=== PATIENT | female | born 1990 | race Two or more races ===

== ENCOUNTER 2020-06-19 17:38 | Emergency (ER) | payer OTHER, BC, SELFPAY ==
[2020-06-19 17:39] VITALS: BP 128/75; PULSE 101; RESP 16; TEMP 36.4; O2SAT 98; BMI 25.7
[2020-06-19] MEDS: Ondansetron 4 MG/2 ML Vial IV (18:21)
[2020-06-19] MEDS: Morphine 4 MG/ML Syringe IV (18:22)
[2020-06-19] MEDS: Ketorolac 15 MG/ML Vial IV (18:23)
--- NOTE | 2020-06-19 18:40 | RAD_ITS ---
STUDY: X-RAY - LUMBAR SPINE REASON FOR EXAM: Female, 30 years old. fall off horse, low back pain TECHNIQUE: 3 view(s) of the lumbar spine were obtained. COMPARISON: None FINDINGS: Normal lumbar lordosis. There is mild levo scoliosis. There is a normal alignment of the vertebrae. Disc space heights are well-maintained. There is minor endplate spurring at L5-S1 The soft tissue structures are unremarkable. RAD/Lumbar Spine 2 or 3 Views IMPRESSION: Mild scoliosis and degenerative changes. No acute fracture Electronically Signed: Nikolay Montoya MD at 19:23 EDT , Service support ,
--- NOTE | 2020-06-19 18:54 | ED.DCSUM_ITS ---
History of Present Illness Chief Complaint: Trauma Informant: Patient Onset: Today Mechanism/Context: Blunt Injury, Fall Quality of Pain: Dull, Aching Location: Right flank/lower back and central low back pain over the L4, 5 and sacral Current Severity: Mild Maximum Severity: Moderate Worsened by: Movement and sitting Relieved by: Nothing Associated Symptoms: Negative for: Parasthesias, Weakness, Loss of function, Inability to ambulate, Loss of consciousness, Amnesia Narrative: Patient is a 30-year-old woman who was getting on a horse that bucked. She was thrown from the horse. She did hit her head. She was wearing a helmet. Denies loss of conscious. She would not days. She denies nausea or vomiting. She states she feels foggy at this time. She denies neck pain. She denies paresthesia, anesthesia motor is present in the upper or lower extremities. She has urinated since the fall and states there was no blood or discoloration of her urine. She is on no anticoagulant. She has no medical problems. Tetanus Immunization: 5-10 years Prior similar symptoms: No Recent Illness/Hospitalization: No - Past Medical History (1) No significant past medical history Status: Acute Past Medical History - Allergies and Home Meds Allergies/Adverse Reactions: Allergies No Known Allergies Allergy (Verified 06/19/20 17:41) Primary Care Physician: Kj Cantu MD [Primary Care Provider] - Prior records reviewed: No Past Medical History: None Surgical History: noncontributory Lives: Spouse/ Significant Other Smoking Status: Never smoker Drugs: None Review of Systems Eyes: Denies: Visual changes - bilaterally, Blurred Vision - bilaterally ENT: Reports: - - Denies epistaxis. Denies: Rhinorrhea, Sore throat Cardiovascular: Denies: Chest pain, Palpitations Gastrointestinal: Denies: Abdominal pain, Nausea, Vomiting, Diarrhea, Melena, Hematochezia Genitourinary: Denies: Dysuria, Hematuria, Frequency Musculoskeletal: Reports: Back pain. Denies: Myalgias, Arthralgias, Neck pain, Swelling, Extremity Pain, -, - Skin: Reports: Abrasions. Denies: Rash, Abscess, Wounds, -, - Neurological: Denies: Headache, Weakness, Parasthesia Endocrine: Denies: Polyuria, Polydipsia Hematologic: Denies: Easy bruising, Easy bleeding Physical Exam Vital Signs/Narrative: Vital Signs Temp Pulse Resp BP Pulse Ox 06/19/20 17:39 97.6 F L 101 H 16 128/75 H 98 Inital Vital Signs reviewed: Yes General: Well nourished, Well developed Head: Normocephalic, Atraumatic, - - No clinical finding of basilar skull fracture. Negative for: Trauma, Tenderness Eyes: Perrl, EOMI, - - Subconjunctival hemorrhage. Negative for: Pale conjunctiva, Scleral icterus ENT: TM's clear, No hemotympanum or drainage, No trauma. Negative for: Nasal trauma, Nasal septal hematoma Neck: Nontender, Full ROM Cardiovascular: Regular rate, Regular rhythm, No murmurs, Normal S1, Normal S2 Respiratory: No distress, CTA bilaterally, Chest nontender Abdomen: Soft, Nontender, Nondistended, Normal bowel sounds, - - No pain palpation of the pelvis Back: CVA Tenderness - Right, Spinal Tenderness - L4-5 spinous process and sacrum, Paraspinal Tenderness. Negative for: Nontender, CVA Tenderness - Left Skin: Normal color, No rash, Trauma - Abrasions and contusions right lower back/flank and midline Neurological: Alert, Oriented x3, Cranial nerves II-XII grossly intact, Normal Strength, Normal Sensation, Normal DTR Psychological: Normal affect - Glascow Coma Scale Eye Opening: Spontaneous Motor: Obeys Commands Verbal: Oriented Coma Scale Total: 15 Diagnostic/Tx/Re-eval Chest X-Ray - ED: Read by ED Physician, - - 3 view x-ray of the LS-spine reveals no evidence of fracture, subluxation, spondylolisthesis or spinal orthosis. - Medical Decision Making She was medicated with IV meds. X-ray was obtained to rule out fracture. ED Disposition - Plan for ED Patient: Disposition: Home or Assisted Living Diagnosis: Contusion of lower back and pelvis, initial encounter, Abrasions of multiple sites Instructions: ED Contusion Back, ED Abrasion Prescriptions: Naproxen [Naprosyn] 500 mg PO BID #14 tab Transmission Status: Pending to [facility]/pharmacy #[id number] Referrals: Kj Cantu MD [Primary Care Provider] - 1 Week if not improving Additional Instructions: 1. You may feel pain in more places and you presently do 2. You may feel worse over the next 24 to 48 hours. 3. You may hurt up to 1 week. 4. Apply ice 20 to 30 minutes per application 6-8 times a day for the next 3 to 5 days.
== END 2020-06-19 19:42 | disposition home or self-care (01) ==
PROVIDERS: Emergency Provider Emergency Medicine; PCP Family Medicine
DX: S06.0X0A Concussion without loss of consciousness, initial encounter (principal); S30.0XXA Contusion of lower back and pelvis, initial encounter; S30.810A Abrasion of lower back and pelvis, initial encounter; S30.811A Abrasion of abdominal wall, initial encounter; V80.010A Animal-rider injured by fall from or being thrown from horse in noncollision accident, initial encounter; Y93.89 Activity, other specified; Y92.9 Unspecified place or not applicable; Y99.9 Unspecified external cause status
CPT/HCPCS: 72100; 96374; 96375; 99281; 99284; A4216; J2405

== ENCOUNTER 2020-09-28 11:53 | Outpatient (RCR) | payer BC, SELFPAY | END 2020-09-28 23:59 | LOC: IMMUN 11:53 | PROVIDERS: PCP Family Medicine; Visit Provider Family Medicine | DX: Z23 Encounter for immunization (principal) | CPT/HCPCS: 0011A; 0012A; 91301 ==